=== PATIENT | male | born 1965 | race Caucasian/White ===

== ENCOUNTER 2018-08-04 06:25 | Day surgery (SDC) | payer OTHER ==
[2018-08-04] MEDS ORDERED: Sodium Chloride 0.9% 2.5 ML Syringe FLUSH PRN (06:52)
[2018-08-04] MEDS ORDERED: Glucagon,Human Recombinant 1 MG Vial IM ONE (06:52)
[2018-08-04] MEDS ORDERED: Sodium Chloride 0.9% 10 ML Syringe FLUSH PRN (06:52)
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
[2018-08-04] MEDS ORDERED: Lactated Ringers 1,000 ML IV SCH (09:00)
--- NOTE | 2018-08-04 11:17 | PCM.SN ---
- Free Text/Narrative Note: pt seen, chart reviewed; hp/cx dictated [id number]; proceed w egd and fb extraction
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
[2018-08-04] MEDS ORDERED: Lidocaine 2% 5 ML SDV ONE (12:10)
[2018-08-04] MEDS ORDERED: Succinylcholine 200 MG/10 ML MDV ONE (12:10)
[2018-08-04] MEDS ORDERED: Ondansetron 4 MG/2 ML SDV ONE (12:10)
[2018-08-04] MEDS ORDERED: Propofol 200 MG/20 ML SDV ONE (12:10)
[2018-08-04] MEDS ORDERED: Midazolam 1 MG/ML 2 ML SDV ONE (12:10)
[2018-08-04] MEDS ORDERED: fentaNYL 250 MCG/5 ML SDV ONE (12:10)
[2018-08-04] MEDS ORDERED: Rocuronium 10 MG/ML 10 ML Syringe ONE (12:10)
--- NOTE | 2018-08-04 12:39 | PCM.OPNOTE ---
- General Post-Op/Procedure Note Date of Surgery/Procedure: 08/04/18 Operative Procedure(s): egd w fb extraction Findings: see [id number] Pre Op Diagnosis: food stuck Post-Op Diagnosis: Same Anesthesia Technique: General ET Tube Primary Surgeon: David Ahuja Role of Emergency Department: antrum and body bx Complications: None Condition: Stable
[2018-08-04 13:15] VITALS: BP 102/64
--- NOTE | 2018-08-04 13:25 | PCM48HPAN ---
Post Anesthesia Note - EVALUATION WITHIN 48HRS OF ANESTHETIC Vital Signs in Normal Range: Yes Patient Participated in Evaluation: Yes Respiratory Function Stable: Yes Airway Patent: Yes Cardiovascular Function Stable: Yes Hydration Status Stable: Yes Pain Control Satisfactory: Yes Nausea and Vomiting Control Satisfactory: Yes Mental Status Recovered: Yes Resp Rate: 18
--- NOTE | 2018-08-04 13:25 | PCM.POSTAN ---
POST ANESTHESIA ASSESSMENT - MENTAL STATUS Mental Status: Alert, Oriented - RESPIRATORY Respiratory Status: Respiratory Rate WNL, Airway Patent, O2 Saturation Stable - CARDIOVASCULAR CV Status: Pulse Rate WNL, Blood Pressure Stable - GASTROINTESTINAL GI Status: No Symptoms - POST OP HYDRATION Hydration Status: Adequate & Stable
--- NOTE | 2018-08-04 13:45 | OR ---
SURGEON: David Ahuja MD DATE OF PROCEDURE: 08/04/2018 PREOPERATIVE DIAGNOSIS: Food stuck in throat. POSTOPERATIVE DIAGNOSIS: Food stuck in throat. PROCEDURE PERFORMED: Esophagogastroduodenoscopy with foreign body extraction. COMPLICATION: None. FINDINGS: 1. The patient is status post GET anesthesia. 2. Proximal esophagus and oropharynx are normal in appearance. No stricture, inflammation, or infection. 3. A piece of meat was stuck in the GE junction and with water accumulating in the esophagus, with some gentle push, but the scope into the esophagus dropped into the stomach. Otherwise, examination of the stomach and duodenum, there was no other etiology. No blood or ulcer. The GE junction at 40 is very inflamed, and there is no hiatal hernia. The patient would follow in my office two weeks from today. PROCEDURE IN DETAIL: The patient was taken to the endoscopy room and placed in the supine position and GET anesthesia was performed. A time-out was being called, patient identified, procedure identified, and procedure was then started. A well- lubricated Luzmaria endoscope was gently inserted through the mouth and nicked to the intubation tube and goes through the oral cavity into the esophagus and through the oropharynx and into the esophagus, encountered a pool of water, further advanced the scope and encountered a piece of meat stuck in the GE junction with gentle push, the piece of meat fell into the stomach. The GE junction was noted to be very inflamed and edematous. Stomach rugae is normal in appearance, and there is no blood, no ulcer observed. Advanced the scope to the antrum and mildly inflamed. Duodenum was grossly normal. Scope was then retrieved back in the stomach. Retroflexed look at the fundus of stomach, and biopsy done at antrum and body and sucked out the gas while scope pulling out. The patient tolerated procedure well. There were no intraoperative complication. Throughout the whole study, there is no blood or ulcer observed. There was no bile or food particle observed other than the piece of meat stuck in the throat. LINA / RAMIREZ /[id number]
--- NOTE | 2018-08-04 14:04 | HP ---
H&P AND ER CONSULTATION DATE OF : 1965 PRIMARY CARE PHYSICIAN: Keanu Arredondo PA-C CONSULTING QUESTION: Food stuck. HISTORY OF PRESENT ILLNESS: The patient is a 53-year-old gentleman, complained about 12-hour history of cannot swallow after he had a piece of steak and seems to have stuck in the epigastrium. Cannot swallow his own saliva and seen in the emergency room, and Surgery was then consulted. Currently, the patient denied shortness of breath and denied any pain at all. Just cannot swallow and denied prior episode. PAST MEDICAL HISTORY: Significant for no diabetes, SD, CVA, or hypertension. PAST SURGICAL HISTORY: No abdominal surgery. ALLERGIES: Please refer to nursing for details. MEDICATION: Please refer to nursing for details. REVIEW OF SYSTEMS: Same as history of present illness. PHYSICAL EXAMINATION: GENERAL: A very healthy gentleman. Appropriate for his age in no acute distress. Smiled to the doctor and shaking hand. Talking with clear voice. No hoarse voice. HEENT: Normocephalic and atraumatic. Sclerae anicteric. LUNGS: Clear to auscultation. HEART: Regular rate and rhythm. ABDOMEN: Soft. Nondistended. No pulsating tender midline abdominal structure. No surgical scar or hernia. Nontender in epigastrium. There is no lab draw for this ER visit. IMPRESSION: Food stuck in the throat for about 12 hours, still cannot swallow. Probably will benefit from EGD with foreign body extraction. Risks and benefits discussed with the patient, including bleeding, infection, perforation, and postop course. The patient concurred to proceed as planned. As always, thank you for the kind referral. LINA / RAMIREZ /[id number]
== END 2018-08-04 15:10 | disposition home or self-care (01) ==
LOC: MW.ED 06:25 → MW.SDS 08:32
PROVIDERS: ATTEND Surgery
DX: T18.128A Food in esophagus causing other injury, initial encounter (principal); K29.50 Unspecified chronic gastritis without bleeding; B96.81 Helicobacter pylori [H. pylori] as the cause of diseases classified elsewhere
CPT/HCPCS: 43239; 43247; 96372; 99284; J0330; J1610; J2001; J2250; J2405; J2704; J3010; 88305; 88312